=== PATIENT | male | born 1955 | race African-American/Black ===

== ENCOUNTER 2019-10-10 07:08 | Inpatient (IN) | payer MEDICARE, OTHER ==
[~2019-10-10] VITALS: Ht 170.2 cm; Wt 83.9 kg
[2019-10-10] VITALS (8 sets, daily range): BP systolic 118–152; BP diastolic 59–81
--- NOTE | 2019-10-10 07:16 | Emergency Room Report ---
History of Present Illness General Chief Complaint: Chest Pain Source: Patient Present Illness HPI 64-year-old male history of multiple medical conditions including COPD, coronary artery disease, kidney transplant, hypertension, A. fib, diabetes, chronic respiratory failure ventilator dependent, presented for complaints of chest pain. Patient apparently has had chest pain for the past 2 days. Presented from convalescent home by EMS. No report of fevers. Patient does report a cough. No vomiting. Patient is on his baseline ventilatory settings. History is somewhat limited due to patient's tracheostomy status. He does respond yes or no and is alert on arrival. Allergies: Coded Allergies: No Known Allergies (Unverified , 10/10/19) Patient History Past Medical History: see triage record Reviewed Nursing Documentation: PMH: Agreed; PSxH: Agreed Nursing Documentation-PMH Hx Cardiac Problems: Yes - AFIB Hx Hypertension: Yes Hx Diabetes: Yes Hx Dialysis: No - HISTORY Review of Systems All Other Systems: negative except mentioned in HPI Physical Exam Vital Signs Date Time Temp Pulse Resp B/P (MAP) Pulse Ox O2 Delivery O2 Flow Rate FiO2 10/10/19 07:03 Room Air Sp02 EP Interpretation: reviewed, normal General Appearance: no apparent distress, other - Chronically ill-appearing Head: normocephalic, atraumatic Eyes: bilateral eye PERRL, bilateral eye EOMI ENT: hearing grossly normal, moist mucus membranes Neck: full range of motion, supple, other - Tracheostomy present Respiratory: no respiratory distress, no retraction, no wheezing, other - Course breath sounds noted bilaterally Cardiovascular #1: normal peripheral pulses, regular rate, rhythm, no murmur, other - AV fistula in left upper extremity with a thrill Gastrointestinal: non tender, soft, non-distended, no guarding, other - Gastrostomy tube present Neurologic: alert, oriented x3, no focal defects Skin: normal color, warm/dry Medical Decision Making ER Course Differential diagnosis included but not limited to angina, ACS, infectious process to name a few. On exam patient in no acute distress, patient was on his baseline ventilatory settings. He was afebrile. Troponin was negative x1. EKG showed sinus rhythm. X-ray did not show any evidence of infiltrate. Due to patient's extensive cardiac history will place on observation in the hospital. His primary care doctor agreed to admit, Dr. Cohen. Given aspirin in the ER in addition to IV morphine. Laboratory Tests Test 10/10/19 07:11 White Blood Count 9.3 K/UL (4.8-10.8) Red Blood Count 4.22 M/UL (4.70-6.10) L Hemoglobin 10.9 G/DL (14.2-18.0) L Hematocrit 33.0 % (42.0-52.0) L Mean Corpuscular Volume 78 FL (80-99) L Mean Corpuscular Hemoglobin 25.8 PG (27.0-31.0) L Mean Corpuscular Hemoglobin Concent 32.9 G/DL (32.0-36.0) Red Cell Distribution Width 16.1 % (11.6-14.8) H Platelet Count 229 K/UL (150-450) Mean Platelet Volume 6.3 FL (6.5-10.1) L Neutrophils (%) (Auto) 62.4 % (45.0-75.0) Lymphocytes (%) (Auto) 27.1 % (20.0-45.0) Monocytes (%) (Auto) 8.0 % (1.0-10.0) Eosinophils (%) (Auto) 1.4 % (0.0-3.0) Basophils (%) (Auto) 1.2 % (0.0-2.0) Prothrombin Time 11.4 SEC (9.30-11.50) Prothrombin Time INR 1.1 (0.9-1.1) Activated Partial Thromboplast Time 27 SEC (23-33) Sodium Level 140 MMOL/L (136-145) Potassium Level 4.1 MMOL/L (3.5-5.1) Chloride Level 103 MMOL/L (98-107) Carbon Dioxide Level 27 MMOL/L (21-32) Anion Gap 10 mmol/L (5-15) Blood Urea Nitrogen 15 mg/dL (7-18) Creatinine 0.8 MG/DL (0.55-1.30) Estimate Glomerular Filtration Rate > 60 mL/min (>60) Glucose Level 161 MG/DL (74-106) H Lactic Acid Level 1.10 mmol/L (0.4-2.0) Calcium Level 9.5 MG/DL (8.5-10.1) Magnesium Level 1.5 MG/DL (1.8-2.4) L Total Bilirubin 0.4 MG/DL (0.2-1.0) Aspartate Amino Transferase (AST) 14 U/L (15-37) L Alanine Aminotransferase (ALT) 26 U/L (12-78) Alkaline Phosphatase 148 U/L (46-116) H Total Creatine Kinase 19 U/L (26-308) L Troponin I 0.042 ng/mL (0.000-0.056) Total Protein 7.0 G/DL (6.4-8.2) Albumin 2.6 G/DL (3.4-5.0) L Globulin 4.4 g/dL Albumin/Globulin Ratio 0.6 (1.0-2.7) L EKG Diagnostic Results EP Interpretation: Kobe Phelps MD Rate: normal Rhythm: NSR ST Segments: no acute changes Other Impression Right bundle branch block, LVH Rhythm Strip Diag. Results EP Interpretation: yes Rate: 87 Rhythm: NSR, no ectopy Chest X-Ray Diagnostic Results Chest X-Ray Diagnostic Results : Chest X-Ray Ordered: Yes # of Views/Limited/Complete: 1 View Indication: Chest Pain Interpretation: other - Procedure: XRAY Chest 1v Electronically Signed by: Kobe Phelps MD Last Vital Signs Date Time Temp Pulse Resp B/P (MAP) Pulse Ox O2 Delivery O2 Flow Rate FiO2 10/10/19 07:03 Room Air Disposition: PLACE IN OBSERVATION Condition: Serious Kobe Phelps M.D. Oct 10, 2019 07:15
[2019-10-10 07:25] LABS: BASOPHILS % (AUTO) 1.2 % (0.0-2.0); EOSINOPHILS % (AUTO) 1.4 % (0.0-3.0); HEMOGLOBIN 10.9 G/DL (14.2-18.0); LYMPHOCYTES % (AUTO) 27.1 % (20.0-45.0); MEAN CORPUSCULAR VOLUME 78 FL (80-99); NEUTROPHILS % (AUTO) 62.4 % (45.0-75.0); PLATELET COUNT 229 K/UL (150-450); RED BLOOD COUNT 4.22 M/UL (4.70-6.10); RED CELL DISTRIBUTION WIDTH 16.1 % (11.6-14.8); WHITE BLOOD COUNT 9.3 K/UL (4.8-10.8)
--- NOTE | 2019-10-10 07:25 | NUR ---
RESPIRATORY NOTE: BIBA from alf for chest pain, patient is awake and responsibe, he is able to make needs known with facial gestures and with use of his hands, he is ventialtor with setting of AC 10, TV 500, FIO2 of 40% with peep of 5 through a shiely 8, patient has a left wrist shunt with bruit and thrill present and is palplable, patient has a picc line on the right upper arm dual lumen with blood return present. he is able to move upper and lower extremeties upon request.
[2019-10-10 07:31] LABS: ANION GAP 10 mmol/L (5-15); BLOOD UREA NITROGEN 15 mg/dL (7-18); CALCIUM 9.5 MG/DL (8.5-10.1); CARBON DIOXIDE 27 MMOL/L (21-32); CHLORIDE 103 MMOL/L (98-107); CREATININE 0.8 MG/DL (0.55-1.30); POTASSIUM 4.1 MMOL/L (3.5-5.1); SODIUM 140 MMOL/L (136-145)
[2019-10-10 07:36] LABS: ALANINE AMINOTRANSFERASE 26 U/L (12-78); ALBUMIN 2.6 G/DL (3.4-5.0); ALBUMIN/GLOBULIN RATIO 0.6 (1.0-2.7); ALKALINE PHOSPHATASE 148 U/L (46-116); ASPARTATE AMINO TRANSFERASE 14 U/L (15-37); BILIRUBIN,TOTAL 0.4 MG/DL (0.2-1.0); CREATINE KINASE 19 U/L (26-308)
[2019-10-10 07:39] LABS: INR 1.1 (0.9-1.1)
[2019-10-10] MEDS ORDERED: REGLAN10 MG ORAL (07:59)
[2019-10-10] MEDS ORDERED: BISACODYL5 MG ORAL (07:59)
[2019-10-10] MEDS ORDERED: PREDNISONE2.5 MG ORAL (07:59)
[2019-10-10] MEDS ORDERED: [UNRECOGNIZED DRUG - OTHER] GT (07:59)
[2019-10-10] MEDS ORDERED: PROGRAF1 MG ORAL (07:59)
[2019-10-10] MEDS ORDERED: HYDRALAZINE HCL10 MG ORAL (07:59)
[2019-10-10] MEDS ORDERED: DOCUSATE SODIU100 MG ORAL (07:59)
[2019-10-10] MEDS ORDERED: LANOXIN250 MCG ORAL (07:59)
[2019-10-10] MEDS ORDERED: BACTRIM-DS1 EA ORAL (07:59)
[2019-10-10] MEDS ORDERED: LOVENOX10 M4 SUBQ (07:59)
[2019-10-10] MEDS ORDERED: VIBRAMYCIN100 MG ORAL (07:59)
[2019-10-10] MEDS ORDERED: PACERONE100 MG ORAL (07:59)
[2019-10-10] MEDS ORDERED: ACETAMINOPHEN120 MG GT (07:59)
[2019-10-10] MEDS ORDERED: AMLODIPINE BES2.5 MG ORAL (07:59)
[2019-10-10] MEDS ORDERED: MAGNESIUM OXID400 M1 ORAL (07:59)
[2019-10-10] MEDS ORDERED: Morphine Sulfate 2mg/ml Inj(IV/IM USE ONLY) IVP ONE (08:15)
--- NOTE | 2019-10-10 08:23 | NUR ---
ED Nurse Note: Morphine administered for chest pain on upper left chest with pain of 5/10, patient rubbing chest but remains calm, uses hands to express the senstaion. patient denies any allergies. BP is 135/81 with HR at 84 in sinus rhythm
[2019-10-10] MEDS ORDERED: Aspirin Baby 81mg PEG ONE (08:30)
--- NOTE | 2019-10-10 09:06 | NUR ---
ED Nurse Note: Patient is calm and resting, awakes with light touch and respondes to questions coherently, pain decreased to 2/10 over left upper chest, remains tolerating ventialtor with no change to setting. he is staturating at 100%.
--- NOTE | 2019-10-10 10:00 | NUR ---
NURSE NOTES: RECEIVED TELEPHONE REPORT FROM SALLY CARSON FROM E.D DPT.PT ADMITTED WITH DX OF CP X2 DAYS,TROPONIN 0.042. TRACH TO VENT DEPENDENT TOLERATING WELL CURRENTS VENT SETTING,SAT 100%.SALLY CARSON STATING " SKIN IS INTACT.PT Hx OF COPD, DM.A-FIB,RENAL TRANSPLANT ,H.D.DR DOUGHERTY IS BEEN AWARE AND NOTIFIED BY ED RN. AWAITING FOR PT TO COME AT [facility] ,ROOM 236.
--- NOTE | 2019-10-10 10:08 | Diagnostic Imaging Report ---
Indication: Dyspnea Comparison: None A single view chest radiograph was obtained. Findings: Interstitial densities and prominent pulmonary vascularity are demonstrated. The heart is enlarged. A PICC line is present in good position with the tip projected over the upper part of the right atrium. Tracheostomy and sternotomy noted. Aorta is calcified and slightly enlarged. Bones are osteopenic. IMPRESSION: Interstitial edema
--- NOTE | 2019-10-10 10:27 | NUR ---
ED Nurse Note: Patient arrived to room 236-2, report given to ALLI spaulding. patient tolerated transfer with no distress noted, no belonging on patient.
[2019-10-10] MEDS ORDERED: Bisacodyl EC 5mg tab ORAL PRN (14:53)
[2019-10-10] MEDS ORDERED: HydrALAZINE 10mg Tab ORAL PRN (15:00)
--- NOTE | 2019-10-10 15:12 | NUR ---
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 98.4 HR 88 RR 24 B/P 135/71 AC 12 TV 500 FIO2 40% PEEP 5 MG 1.5 ALK PHOS 148 CXR=INTERSTITIAL EDEMA IS: MAGNESIUM IV LOVENOX SUBC ASA ALB INLINE TX ADMITTED TO STEP DOWN STEP DOWN STATUS DCP RETURN TO [facility]
[2019-10-10] MEDS: Albuterol/Ipratropium 3ml neb IN-LINE SCH ×3 (15:22→23:29)
[2019-10-10] MEDS ORDERED: NovoLOG Insulin Flexpen SUBQ SCH (16:50)
[2019-10-10] MEDS: Docusate 100mg cap ORAL SCH (18:52)
[2019-10-10] MEDS: NovoLOG Insulin Flexpen SUBQ SCH ×2 (18:55→21:25)
--- NOTE | 2019-10-10 19:30 | NUR ---
NURSE NOTES: Pt report received from ANDREY CARSON. pt remains stable. pt is alert and oriented times 3, able to follow commands. pt is on vehicle monitor technician showing NSR, no cardiac distress noted. pt is on trach to vent showing 99% O2 sat, no acute signs symptoms of resp distress. pt bed is low, locked, armed, bed rails up times 3, call light within reach. will follow plan of care.
--- NOTE | 2019-10-10 19:30 | NUR ---
HAND-OFF: Report given to .NATALIE CARSON.
[2019-10-11] VITALS: BP 132/85
[2019-10-11] MEDS: Albuterol/Ipratropium 3ml neb IN-LINE SCH ×3 (03:00→11:26)
--- NOTE | 2019-10-11 03:27 | NUR ---
NURSE NOTES: pt refused ordered EKG.
--- NOTE | 2019-10-11 03:45 | Consultation ---
DATE OF CONSULTATION: 10/10/2019 CARDIOLOGY CONSULTATION CONSULTING PHYSICIAN: Terry Thompson M.D. REQUESTING PHYSICIAN: Tripp Toro M.D. REASON FOR CONSULTATION: Chest pain. HISTORY OF PRESENT ILLNESS: This is a 64-year-old male, [facility] facility and has a tracheostomy for chronic respiratory failure. He was sent to the emergency room because of complaints of left-sided chest pain and back pain. He had his baseline respiratory symptoms with respect to shortness of breath noting no change. He has not had fevers or chills, but has had some cough with scant sputum production. PAST MEDICAL HISTORY: Includes atrial fibrillation, type 2 diabetes mellitus, hypertension, chronic obstructive pulmonary disease, history of renal transplant, and coronary atherosclerosis. ALLERGIES: None. MEDICATIONS: Reviewed and reconciled. FAMILY HISTORY: Noncontributory. SOCIAL HISTORY: Prior smoker. No alcohol or substance abuse. REVIEW OF SYSTEMS: Not obtainable from the patient due to his trach and difficulty with verbal communication. However, records are reviewed x20 minutes and pertinent data has been outlined above. PHYSICAL EXAMINATION: VITAL SIGNS: Blood pressure 132/62, pulse 76, and respirations 20. Afebrile. HEENT: Conjunctivae pink. Thin trach secretions. LUNGS: Bilateral breath sounds. No wheezing. HEART: Regular rhythm and rate. Normal S1, S2. ABDOMEN: Soft. EXTREMITIES: No edema. LABORATORY DATA: White count 9.3 and hemoglobin 10.9. Sodium 140, potassium 4.1, bicarb 27, BUN 15, creatinine 0.8, and glucose 161. Troponin 0.042. Albumin 2.6. Chest x-ray reveals mild interstitial edema versus chronic interstitial changes. EKG reveals sinus rhythm, left ventricular hypertrophy, right bundle-branch block. IMPRESSIONS: 1. Anginal episode low likelihood for acute coronary insufficiency. 2. Hypertensive heart disease with controlled blood pressure. 3. Paroxysmal atrial fibrillation apparently suppressed with amiodarone. 4. Ventilator-dependent respiratory failure with tracheostomy. 5. Immunocompromised state following renal transplant on . 6. Chronic diastolic congestive heart failure. 7. Hypomagnesemia. PLAN: 1. Continue amiodarone but adjust to maintenance dose of 200 daily. 2. DVT prophylaxis. Continue baseline dose of Prograf. 3. Serial troponin levels. 4. Natriuretic peptide assay. 5. Echocardiogram. 6. Titrate anti-failure regimen based on clinical parameters. 7. IV magnesium replacement. 8. Ventilator support. Terry Thompson M.D. DR: HELENA JOB#: [id number] CC:
[2019-10-11 04:00] VITALS: BP 140/76
--- NOTE | 2019-10-11 05:07 | NUR ---
NURSE NOTES: Pt refused PICC Line dressing change.
--- NOTE | 2019-10-11 05:26 | NUR ---
NURSE NOTES: Pt refused Blood sugar check.
[2019-10-11] MEDS: NovoLOG Insulin Flexpen SUBQ SCH ×2 (05:36→11:45)
[2019-10-11 06:37] LABS: ALANINE AMINOTRANSFERASE 33 U/L (12-78); ALBUMIN 1.1 G/DL (3.4-5.0); ALBUMIN/GLOBULIN RATIO 0.2 (1.0-2.7); ALKALINE PHOSPHATASE 82 U/L (46-116); ANION GAP 12 mmol/L (5-15); ASPARTATE AMINO TRANSFERASE 28 U/L (15-37); BILIRUBIN,TOTAL 0.3 MG/DL (0.2-1.0); BLOOD UREA NITROGEN 32 mg/dL (7-18); CALCIUM 7.7 MG/DL (8.5-10.1); CARBON DIOXIDE 22 MMOL/L (21-32); CHLORIDE 106 MMOL/L (98-107); CREATININE 1.4 MG/DL (0.55-1.30); POTASSIUM 3.8 MMOL/L (3.5-5.1); SODIUM 140 MMOL/L (136-145)
--- NOTE | 2019-10-11 07:20 | NUR ---
NURSE NOTES: Received patient from ALLI Hernandez. Patient is lying in bed and awake, Patient is AOx3. Patient is on Mechanical Ventilator as ordered and tolerating well. No s/s of respiratory distress at this moment. Patient has a Gtube and receiving Glucerna 1.5 @ 40ml/hr. Patient has a GEM PICC line dressing clean and intact. Bed is in lowest position, alarmed and locked. Optimal HOB placement, Side rails x2, and call light within reach will continue to monitor.
--- NOTE | 2019-10-11 07:22 | NUR ---
HAND-OFF: Report given to VIOLETA CARSON. Pt remains stable.
[2019-10-11 08:00] VITALS: BP 161/92
--- NOTE | 2019-10-11 08:52 | NUR ---
*-* INSURANCE *-* ALL CLINICALS AND REVIEWS HAVE BEEN FAXED TO: [facility] FAX ALL CLINICALS TO [phone]
[2019-10-11] MEDS ORDERED: Enoxaparin 40mg Inj SUBQ SCH (09:00)
[2019-10-11] MEDS ORDERED: Amiodarone 200mg tab ORAL SCH (09:00)
[2019-10-11] MEDS: Docusate 100mg cap ORAL SCH (09:00)
--- NOTE | 2019-10-11 09:24 | NUR ---
*-* DISCHARGE PLANNING *-* PATIENT HAS BEEN REFERRED BACK TO: [facility] P: [phone] F: [phone] EFAX: [phone]
[2019-10-11 11:48] VITALS: BP 134/79
--- NOTE | 2019-10-11 12:20 | NUR ---
NURSE NOTES: Called [facility] and gave report to Holly.
[2019-10-11] MEDS ORDERED: Tubing IV Secondary IV ONE (12:29)
[2019-10-11] MEDS ORDERED: Sterile Water Irrig 1000ml IRRIG ONE (12:29)
[2019-10-11] MEDS ORDERED: NS 275ml ONE (12:29)
--- NOTE | 2019-10-11 12:30 | NUR ---
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 threat monitoring analyst removed and cleaned. Patient disconnected from Gtube feeding. Patient family member notified of transport back to convalescent home. Addendum: 10/11/19 at 1318 by Ayah Schaffer RN BRENDA
--- NOTE | 2019-10-11 14:00 | History and Physical Report ---
DATE OF ADMISSION: 10/10/2019 REASON FOR ADMISSION: Chest pain. HISTORY OF PRESENT ILLNESS: This is a 64-year-old male noted to have chest pain at the facility. The patient is chronically ventilator dependent. The patient is a transplant patient. The patient overall at baseline. No shortness of breath. No chest pain. No palpitations. The patient seen evaluated by the office machine repair shop supervisor. At present, recommended to continue current management without any other changes. The patient is comfortable at present. No significant distress. PAST MEDICAL HISTORY: Atrial fibrillation, diabetes, hypertension, COPD, renal transplant, coronary atherosclerosis. ALLERGIES: Reviewed. MEDICATIONS: Reviewed and reconciled. FAMILY HISTORY: Noncontributory. SOCIAL HISTORY: Prior smoker. Nonsmoker and nondrinker at present. REVIEW OF SYSTEMS: The patient is ventilator dependent. PHYSICAL EXAMINATION: GENERAL: A well-developed male, comfortable. VITAL SIGNS: Reviewed. Blood pressure 140/76, pulse 79, temperature 98.5, respirations 20, the patient is on 40% FiO2. HEENT: Negative. NECK: Supple. Tracheostomy midline. LUNGS: Moderate breath sounds. No rhonchi. CARDIAC: S1, S2. Regular rate and rhythm. ABDOMEN: Soft, nontender. G-tube. EXTREMITIES: No edema. LABORATORY DATA: Reviewed. Hemoglobin 10.9. Chemistries noted. BUN 32, creatinine 1.4. Albumin is only 1.1. IMPRESSION: 1. Chest pain, likely nonanginal. 2. Hypertensive heart disease. 3. Mild pulmonary edema. 4. Paroxysmal atrial fibrillation. 5. Ventilator dependence. 6. Immunocompromised state. 7. CHF. RECOMMENDATIONS: Supportive care. Return the patient back to the facility at present. Continue as is. No other changes for now and follow for further changes, interventions, and ongoing recommendations. The patient's TSH is elevated. We will titrate thyroid and monitor albumin levels. Troponins are negative. The patient appears to be stable for discharge. Tripp Toro M.D. DR: ANNIE JOB#: [id number] CC:
--- NOTE | 2019-10-12 | Progress Note ---
DATE: 10/11/2019 CARDIOLOGY PROGRESS NOTE SUBJECTIVE: The patient has not had any chest pain. He notes some back pain. He admits that his pain on arrival was from the back. Monitored rhythm, atrial fibrillation. PHYSICAL EXAMINATION: LUNGS: Bilateral breath sounds. Thin trach secretions. CARDIAC: Irregularly irregular rhythm. Normal S1, S2. ABDOMEN: Soft. EXTREMITIES: No edema. LABORATORY DATA: Laboratories are reviewed, notable for albumin 1.1, TSH of 10. IMPRESSION: 1. Noncardiac chest pain. 2. Hypertensive heart disease. 3. Renal transplant. 4. Acute on chronic diastolic congestive heart failure, clinically compensated. 5. Hypothyroidism. 6. Immunocompromised state. 7. Ventilator-dependent respiratory failure. PLAN: 1. Thyroid supplement. 2. Maintain current cardiovascular regimen. 3. Monitor cardiorenal parameters. 4. Outpatient renal consulted to address immunosuppressant therapy and possible taper of medications. 5. Continue current adjusted amiodarone, maintenance dosage 200 mg daily. Terry Thompson M.D. DR: MIGUE JOB#: [id number] CC:
--- NOTE | 2019-10-13 08:37 | Discharge Summary ---
Discharge Summary Discharge Summary _ DATE OF ADMISSION: 10/10/2019 DATE OF DISCHARGE: 10/25/2019 DISCHARGED BY: Dr. Marino Toro CONSULTANTS: Dr. Terry Thompson BRIEF HOSPITAL COURSE: Patient is a 64-year-old -Thai male, who resides in a [facility] facility, with history of chronic respiratory failure and tracheostomy. He was sent to the emergency room because of complaints of left-sided chest pain and back pain. He is a transplant patient. He denied any shortness of breath. Patient overall at baseline. He has medical history of atrial fibrillation, diabetes, hypertension, COPD, renal transplant and coronary atherosclerosis. Upon evaluation at ED, blood work did not show any leukocytosis. Hemoglobin 11 , hematocrit 33. Electrolytes normal. Troponin negative. EKG was in sinus rhythm with right bundle branch block, LVH. Chest x-ray showed interstitial edema. He was admitted for evaluation of chest pain. Milk Handler was consulted. Cardiac enzymes were monitored. He was continued on amiodarone, maintenance dose 200 mg daily. He was placed on DVT prophylaxis. He was continued on baseline dose of Prograf. He was given IV magnesium replacement. Blood glucose monitored and was placed on NovoLog sliding scale. Monitored rhythm was atrial fibrillation. Blood work showed elevated TSH of 10. Troponin negative. He denied any chest pain. Pain was from the back. He was then cleared for discharge back to [facility]. Continue current management. Titrate thyroid and monitor albumin levels. FINAL DIAGNOSES: Chest pain, likely nonanginal Hypertensive heart disease Mild pulmonary edema Paroxysmal atrial fibrillation Vent dependence respiratory failure Immunocompromised state with renal transplant Acute on chronic diastolic congestive heart failure, clinically compensated Hypothyroidism DISPOSITION: DC back to [facility] MEDICATIONS: Refer to Discharge Medication List. I have been assigned to complete a discharge summary on this account, I was not involved with the patient's management.--PIERRE Mcclendon Jacqueline Robles NP Oct 13, 2019 08:37
--- NOTE | 2019-10-14 16:15 | NUR ---
*-* INSURANCE *-* discharge summary has been faxed to: [facility] SUTTON FAX ALL CLINICALS TO [phone]
--- NOTE | 2019-10-15 21:08 | Coder Physician Query ---
Clarification is required for compliance, coding accuracy, and to reflect severity of illness for this patient Dear Dr. DOUGHERTY Date: 10/15/19 Principle Software Engineer/CDS' Name: Chris MAYA BRIEF HOSPITAL COURSE: Patient is a 64-year-old -[place] male, who resides in a long term facility, with history of chronic respiratory failure and tracheostomy. He was sent to the emergency room because of complaints of left-sided chest pain and back pain. He is a transplant patient. Troponin negative. EKG was in sinus rhythm with right bundle branch block, LVH. Chest x-ray showed interstitial edema. FINAL DIAGNOSES: Chest pain, likely nonanginal Please document the suspected etiology of Chest Pain: [] Acute Coronary Syndrome [] Pericarditis [x] Anxiety [] Cancer [] Pneumonia [] Costochondritis [] Pneumothorax [] GERD/Esophagitis [] Pulmonary embolism [] Other: [] Unable to determine ANTONINO DOUGHERTY M.D. Date Please also document in your Progress Notes and/or Discharge Summary and indicate if the condition was present on admission. RIKY
== END 2019-10-11 12:30 | DRG 198 ==
LOC: EDBD 07:08 → EMR 07:38 → EDBEDREQ 09:41 → OBSVTOIN 09:53 → 2W 09:53
PROC: 5A1945Z Respiratory Ventilation, 24-96 Consecutive Hours (ICD-10-PCS; principal; 2019-10-10)
DX: R07.89 Other chest pain (principal); F41.9 Anxiety disorder, unspecified; J96.10 Chronic respiratory failure, unspecified whether with hypoxia or hypercapnia; E11.9 Type 2 diabetes mellitus without complications; I45.10 Unspecified right bundle-branch block; I11.9 Hypertensive heart disease without heart failure; I48.0 Paroxysmal atrial fibrillation; Z99.11 Dependence on respirator [ventilator] status; Z94.0 Kidney transplant status; I11.0 Hypertensive heart disease with heart failure; I50.33 Acute on chronic diastolic (congestive) heart failure; J44.9 Chronic obstructive pulmonary disease, unspecified; I25.10 Atherosclerotic heart disease of native coronary artery without angina pectoris; Z87.891 Personal history of nicotine dependence; Z43.0 Encounter for attention to tracheostomy; E83.42 Hypomagnesemia; E03.9 Hypothyroidism, unspecified
CPT/HCPCS: 36415; 71045; 80053; 80162; 82550; 82962; 83605; 83735; 83880; 84443; 84484; 85025; 85610; 85730; 87040; 87070; 87081; 87205; 93005; 93306; 94002; 94003; 94664; 96374; 99285; J1815; J7620